=== PATIENT | female | born 1985 | race Caucasian/White ===

== ENCOUNTER 2019-04-08 08:28 | Observation (INO) | payer BC ==
[~2019-04-08] VITALS: Ht 165.1 cm; Wt 93.2 kg
--- OUTSIDE RECORDS SUMMARY | 2019-04-08 08:30 | XMS REPORT | Continuity of Care Document ---
Author Author [facility] Address [address] [place] [address] Care Team Providers Care Aviation Consultant Name Role Phone Regis Sandoval Attphys NONE, NONE PCP Unavailable NONE, NONE PCP Unavailable Allergies, Adverse Reactions, Alerts No allergy information available. Medications No medication information available. Problem List No problem information available. Procedures Procedure Date Status Provider(s) RIGHT EXTRA CORPORAL SHOCKWAVE.. October 30, 2017 completed Regis Sandoval MD [place] Count October 30, 2017 active October 30, 2017 active Stone Protocol October 29, 2017 completed Abdomen 1 View (KUB) October 29, 2017 completed Relevant Diagnostic Tests and/or Laboratory Data Laboratory Results Test Date/Time Result Interp. Ref. Range Result Comment White Blood Count October 30, 2017 10:41am 7.6 K/uL 4.3-10.9 Red Blood Count October 30, 2017 10:41am 4.66 M/uL 3.86-4.86 Hemoglobin October 30, 2017 10:41am 14.7 g/dL 12.0-15.0 Hematocrit October 30, 2017 10:41am 43.1 % 36.0-45.0 Mean Corpuscular Volume October 30, 2017 10:41am 92.5 fL 80-100 Mean Corpuscular Hemoglobin October 30, 2017 10:41am 31.6 pg 27.0-35.0 Mean Corpuscular Hemoglobin Concent October 30, 2017 10:41am 34.1 g/dL 32.0-36.0 Platelet Count October 30, 2017 10:41am 244 K/uL 152-406 Red Cell Distribution Width October 30, 2017 10:41am 13.3 % 12.1-15.2 Mean Platelet Volume October 30, 2017 10:41am 7.7 fL 7.6-11.3 Neutrophils % October 30, 2017 10:41am 70.0 % 41.7-73.7 Lymphocytes % October 30, 2017 10:41am 22.1 % 15.3-44.8 Monocytes % October 30, 2017 10:41am 6.7 % 3.3-12.3 Eosinophils % October 30, 2017 10:41am 0.9 % 0-4.4 Basophils % October 30, 2017 10:41am 0.3 % 0-1.3 Absolute Neutrophil October 30, 2017 10:41am 5.3 K/uL 1.8-8.0 Absolute Lymphocytes (CBC) October 30, 2017 10:41am 1.7 K/uL 0.7-4.9 Absolute Monocytes (CBC) October 30, 2017 10:41am 0.5 K/uL 0.1-1.3 Absolute Eosinophils (CBC) October 30, 2017 10:41am 0.1 K/uL 0-0.5 Absolute Basophils (CBC) October 30, 2017 10:41am 0.0 K/uL 0-0.5 Activated Partial Thromboplast Time October 30, 2017 10:41am 27.6 SECONDS 24.3-36.9 Sodium Level October 30, 2017 10:41am 136 mEq/L 135-145 Potassium Level October 30, 2017 10:41am 4.0 mEq/L 3.6-5.0 Chloride Level October 30, 2017 10:41am 103 mEq/L 101-111 Carbon Dioxide Level October 30, 2017 10:41am 26 mEq/L 21-31 Glucose Level October 30, 2017 10:41am 106 mg/dL 65-120 ADA Clinical Practice Recommendation: <100 mg/dl=Normal Fasting Glucose Blood Urea Nitrogen October 30, 2017 10:41am 16 mg/dL 6-20 Creatinine October 30, 2017 10:41am 0.81 mg/dL 0.44-1.00 The creatinine method used has been calibrated to be traceable to Isotope dilution Mass Spectrometry (IDMS). For more information: www.nkdep.nih.gov Estimat Glomerular Filtration Rate October 30, 2017 10:41am 82 mL/min Low 90- FOR CHRONIC KIDNEY DISEASE: GFR STAGE DESCRIPTION =/>90 STAGE 1 NORMAL--OR-- MINIMAL KIDNEY DAMAGE WITH NORMAL GFR 60-89 STAGE 2 MILD DECREASE IN GFR 30-59 STAGE 3 MODERATE DECREASE IN GFR 15-29 STAGE 4 SEVERE DECREASE IN GFR <15 STAGE 5 KIDNEY FAILURE The Glomerular Filtration Rate (GFR) has been calculated using the IDMS-Traceable MDRD Study Equation. Uric Acid October 30, 2017 10:41am 5.8 mg/dL 2.6-8.0 Calcium Level October 30, 2017 10:41am 9.6 mg/dL 8.5-10.5 Phosphorus Level October 30, 2017 10:41am 2.7 mg/dL 2.5-4.3 Specific [place] October 30, 2017 10:25am 1.025 1.005-1.030 Urine Test October 30, 2017 10:25am Neg Urine Color October 30, 2017 10:25am Yellow Urine Appearance October 30, 2017 10:25am Clear Urine Specific [place] October 30, 2017 10:25am 1.025 Urine Glucose October 30, 2017 10:25am Negative Urine Bilirubin October 30, 2017 10:25am Negative Urine Ketones October 30, 2017 10:25am Negative Urine Blood October 30, 2017 10:25am Negative Urine pH October 30, 2017 10:25am 6.0 Urine Total Protein October 30, 2017 10:25am Negative Urine Urobilinogen October 30, 2017 10:25am 0.2 mg/dL Urine Nitrite October 30, 2017 10:25am Negative Urine Leukocyte Esterase October 30, 2017 10:25am Negative Discharge Summary Encounter: Admit Date: Discharge Date: [facility] NAME: SCOTT QUISPE ADMITTING: ADMIT DATE: ATTENDING: : 1985 ACCOUNT NO: [id number] PATIENT TYPE: DEP ER LOCATION: ER Nurse's Notes [facility] Name: Scott Quispe Age: 31 yrs Sex: Female : 1985 Arrival Date: 06/18/2017 Time: 13:14 Bed 18 Private MD: Diagnosis: Low back pain;Unspecified abdominal pain;Hematuria, unspecified Presentation: 06/18 13:20 Presenting complaint: Patient states: sharp sudden pain to R mid/lower back at 0930, ch comes and goes but hurts so bad I puke when it comes. Transition of care: patient was not received from another setting of care. Onset of symptoms was June 18, 2017 at 09:30. Care prior to arrival: None. 13:20 Method Of Arrival: Ambulatory 13:20 Acuity: YAYA 3 ch Triage Assessment: 13:21 General: Appears in no apparent distress. uncomfortable, Behavior is calm, cooperative, ch appropriate for age. Pain: Complains of pain in right mid back and right low back Pain currently is 8 out of 10 on a pain scale. [employer] FABRICATOR: 13:21 LMP 02/24/2017 Historical: - Allergies: 13:21 No Known Allergies; - Home Meds: 13:22 control implant [Active]; ch - PMHx: 13:21 None; - PSHx: 13:21 ; Appendectomy; abscess removed fro R leg; - Ebola Screening: : Patient negative for fever greater than or equal to 101.5 degrees Fahrenheit, and additional compatible Ebola Virus Disease symptoms Patient denies exposure to infectious person Patient denies travel to an Ebola-affected area in the 21 days before illness onset No symptoms or risks identified at this time. - Immunization history:: Adult Immunizations up to date, Flu vaccine is not up to date. - Social history:: Smoking status: Patient/guardian denies using tobacco, Patient uses alcohol, only on a social basis. Patient/guardian denies using street drugs. - Family history:: not pertinent. - Hospitalizations: : No recent hospitalization is reported. Screenin:32 Abuse screen: Denies threats or abuse. Denies injuries from another. Nutritional ed1 screening: No deficits noted. Tuberculosis screening: No symptoms or risk factors identified. Fall Risk None identified. Assessment: 13:32 General: Appears in no apparent distress. Behavior is calm, cooperative. Pain: ed1 Complains of pain in right low back and right mid back Pain does not radiate. Pain currently is 8 out of 10 on a pain scale. Quality of pain is described as sharp, Pain began 4 hours ago. Is intermittent. Neuro: Level of Consciousness is awake, alert, obeys commands, Oriented to person, place, time, situation. Cardiovascular: Denies chest pain, Heart tones S1 S2 present. Respiratory: Airway is patent Trachea midline Respiratory effort is even, unlabored, Respiratory pattern is regular, symmetrical, Breath sounds are clear bilaterally. Denies shortness of breath. GI: Abdomen is non-distended, Bowel sounds present X 4 quads. Abd is soft and non tender X 4 quads. Reports nausea, vomiting, Patient currently denies diarrhea. : Denies burning with urination, urinary frequency, urgency. EENT: No signs and/or symptoms were reported regarding the EENT system. Derm: Skin is pink, warm \T\ dry. Musculoskeletal: Circulation, motion, and sensation intact. 13:40 General: I agree with the above assessment. kt1 14:51 Reassessment: Patient appears in no apparent distress at this time. No changes from ed1 previously documented assessment. Patient and/or family updated on plan of care and expected duration. Pain level reassessed. Patient is alert, oriented x 3, equal unlabored respirations, skin warm/dry/pink. Vital Signs: 13:21 BP 138 / 75; Pulse 89; Resp 18; Temp 99.2; Pulse Ox 100% on R/A; Weight 81.65 kg; ch Height 5 ft. 5 in. (165.10 cm); Pain 8/10; 14:51 BP 129 / 84; Pulse 76; Resp 16; Temp 97.4(O); Pulse Ox 100% on R/A; Pain 7/10; ed1 13:21 Body Mass Index 29.95 (81.65 kg, 165.10 cm) ED Course: 13:14 Patient arrived in ED. tw3 13:20 Triage completed. 13:22 Arm band placed on right wrist. Patient placed in an exam room, on a stretcher. 13:23 Musa Nelson MD is Attending Physician. rn 13:26 Lucia Chatterjee LVN is Primary Nurse. ed1 13:32 Patient has correct armband on for positive identification. Bed in low position. Call ed1 light in reach. 13:32 Urine collected: clean catch specimen, cloudy. ed1 13:51 Initial lab(s) drawn, by vt, sent to lab. Inserted saline lock: 22 gauge in right ed1 antecubital area, using aseptic technique. Blood collected. 14:07 CT Stone Protocol In Process Unspecified. EDMS 14:51 No provider procedures requiring assistance completed. IV discontinued, intact, ed1 bleeding controlled, No redness/swelling at site. Pressure dressing applied. Administered Medications: No medications were administered Outcome: 14:33 Discharge ordered by . rn 14:51 Discharged to home ambulatory. ed1 14:51 Condition: good 14:51 Discharge instructions given to patient, Instructed on discharge instructions, follow up and referral plans. Demonstrated understanding of instructions, follow-up care. 14:55 Patient left the ED. ed1 Signatures: Dispatcher [employer] So Stephens, RN RN Musa Painter MD MD rn Riggs, Erika, BAG REPAIRER BAG REPAIRER ed1 Josie Daly RN RN kt1 Davis, Candy tw3 Corrections: (The following items were deleted from the chart) 13:22 13:21 Home Meds: None; [facility] 06/18/17 1536 Advance Directives Advance Directive Response Recorded Date/Time Does Patient Have Living Will No July 27, 2013 1:21pm Durable Power of Securities Supervisor for Health Care No July 27, 2013 1:21pm Chief Complaint and Reason for Visit Encounter Admit Date Chief Complaint Reason for Visit Departed Surgical Day Care October 30, 2017 10:22am [facility] Discharge Instructions Query Response Comment Date/Time Discharge Instruction given to Patient/Caregiver Yes 10/30/2017 16:13 Encounters Encounter Facility Location Admit Date Discharge Date Attending Provider Departed Surgical Day Care [facility] OPERATING ROOM October 30, 2017 10:22am October 30, 2017 4:30pm Regis Sandoval Registered Referred [facility] RADIOLOGY October 29, 2017 10:07am Regis Sandoval Functional Status No known functional status. Immunizations No known immunizations. Payers Payer Name Policy Type Covered Alliance Party Covered Alliance Party Id Relationship Subscriber Subscriber Id MEMO GIL [employer] SCOTT QUISPE [id number] SAME PATIENT (SELF) SCOTT QUISPE [id number] Plan of Care No known plan of care. Social History No known social history. Vital Signs Vital Reading Result Reference Range Collection Date/Time Height n/a Weight n/a Temperature 97.6 F 96.8 F-100.9 F October 30, 2017 4:13pm Pulse 58 BPM 50-90 October 30, 2017 4:13pm Respiration 18 RPM 12-20 October 30, 2017 4:13pm Pulse Oximetry n/a Blood Pressure Systolic 122 90-140 October 30, 2017 4:13pm Blood Pressure Diastolic 64 60-90 October 30, 2017 4:13pm Body Mass Index n/a
--- OUTSIDE RECORDS SUMMARY | 2019-04-08 08:30 | XMS REPORT ---
Author Author [facility] Address Unknown Phone Unavailable Care Team Providers Care Retirement Officer Name Role Phone Candi Keene Unavailable Unavailable Davon ODOM Unavailable Unavailable Efren Jacinto Unavailable Unavailable Regis Sandoval Unavailable Unavailable Musa Nelson Unavailable Unavailable Problems This patient has no known problems. Allergies, Adverse Reactions, Alerts This patient has no known allergies or adverse reactions. Medications This patient has no known medications. Results Test Description Test Time Test Comments Text Results Atomic Results Result Comments Thyroid Para Parotid Gland 2019-03-15 12:43:00 [place] [address] RADIOLOGY SERVICES REPORT Name: SCOTT QUISPE Acct Number: [id number] :1985 Age:33 Sex:F Ord Phys: Daren Keene MD Unit Number: [id number] [facility] Dr: Status: REG REF RAD Exam Date: 03/15/19 EXAM DESCRIPTION: US - Thyroid Para Parotid Gland - 03/15/2019 11:37 am CLINICAL HISTORY: Left neck mass COMPARISON: None. FINDINGS: Thyroid isthmus is 5 mm in thickness. Right thyroid lobe measures 5.0 x 1.6 x 1.8 cm. In the central right lobe there is a 13 millimeter solid mass. Left lobe measures 6.5 x 2.6 x 2.5 cm. There is a heterogeneous, predominantly solid 3.6 centimeter mass. A 1.6 centimeter cystic component on the superior margin may be a separate cystic mass. No adjacent mass or lymphadenopathy. IMPRESSION: Overall enlarged thyroid gland with a 3.6 centimeter dominant left lobe mass. Signed By: Geo Montez MD Signed AT: 03/15/19 1243 Triiodothyronine (T3) Free [Mass/volume] in Serum or Plasma 2019-02-28 18:20:00 Triiodothyronine (T3) Free [Mass/volume] in Serum or Plasma (test pmck=4241-7) 2.50 pg/mL 2.18-3.98 Thyroxine (T4) free [Mass/volume] in Serum or Qnvozw7054-59-15 18:20:00* Test Item Value Reference Range Comments Thyroxine (T4) free [Mass/volume] in Serum or Plasma (test bkep=7787-1) 1.12 0.76-1.46 Thyrotropin [Units/volume] in Serum or Plasma by Detection limit <=0.05 mIU/L 2019-02-28 18:20:00* Test Item Value Reference Range Comments Thyrotropin [Units/volume] in Serum or Plasma by Detection limit \T\lt;=0.05 mIU/L (test xvxb=55266-6) 0.612 [iU]/L 0.360-3.740 Complete blood count (CBC) with automated white blood cell (WBC) differential 2019-02-28 17:58:00* Test Item Value Reference Range Comments White blood cell count (test mofz=ZDC5317) 9.8 4.3-10.9 Blood erythrocytes count (number/volume) (test ejic=73818-0) 4.37 M/ul 3.86-4.86 Hemoglobin measurement (test kpil=DEC9852) 13.5 g/dL 12.0-15.0 Blood hematocrit (volume fraction) (test fhye=91581-7) 40.6 % 36.0-45.0 MCV (test etxv=WFR7633) 92.8 fL 80-100 30.8 MCHC (test code=MCHC) 33.2 g/dL 32.0-36.0 Platelets (test code=PLT) 250 152-406 Red Cell Distribution Width (test code=RDW) 13.4 % 12.1-15.2 Blood platelet mean volume (test tdzf=94846-0) 7.4 fL 7.6-11.3 Neutrophils % (test code=CAROL%) 74.2 % 41.7-73.7 Lymphocytes/leuk NFr Bld (test wadf=65302-7) 17.3 % 15.3-44.8 Monocyte percentage (test oouo=4158-8) 7.4 % 3.3-12.3 Eosinophil % (test uhxv=975-3) 0.8 % 0-4.4 Basophil % (test jixa=45319-1) 0.3 % 0-1.3 Absolute neutrophil count (test mpum=666-6) 7.3 1.8-8.0 Absolute lymphocyte count (test rkay=30625-5) 1.7 0.7-4.9 Absolute monocyte count (test gruk=305-9) 0.7 0.1-1.3 Absolute Eosinophils (test code=EOA) 0.1 0-0.5 Absolute Basophils (test code=BASA) 0.0 0-0.5 Urine test at point of qlxs9850-46-84 12:10:00* Test Item Value Reference Range Comments Urine Test (test code=UPG) NEG NEG Urine specific gravity measurement (test jeal=3993-0) 1.015 1.005-1.030 Tested by: jrl BLOOD: NEG GLUCOSE: NEG KETONES: NEG LEUKOCYTES: NEG NITRITE: NEG PH: 7.5 PROTEIN: NEG jrl NEG jrl NEG NEG NEG NEG NEG 7.5 NEG Y 1.015Urine dipstick testing at ifdku-hn-emst8578-01-05 12:10:00* Test Item Value Reference Range Comments Urine glucose detection (test mgbs=3197-5) Negative NEG Urine Ketones (test code=UKET) NEGATIVE NEG Urine blood detection (test lwnp=62552-2) Negative NEG Urine pH (test obsn=2053-6) 7.5 5.0-7.0 Urinalysis with microscopy (test lisr=23007-0) NEGATIVE NEG Urine Nitrate (test code=UNIT) NEGATIVE NEG Urine Leukocyte Esterase (test code=UESTR) NEGATIVE NEG Tested by: jrl BLOOD: NEG GLUCOSE: NEG KETONES: NEG LEUKOCYTES: NEG NITRITE: NEG PH: 7.5 PROTEIN: NEG jrl NEG jrl NEG NEG NEG NEG NEG 7.5 NEG Y 1.015Head Brain Wo Skmj9405-95-79 12:00:00[place] [address] RADIOLOGY SERVICES REPORT Name: SCOTT QUISPE Acct Number: [id number] :1985 Age:33 Sex:F Ord Phys: Marco A Yeboah NP Unit Number: [id number] [facility] Dr: NONE Status: REG ER Exam Date: 11/30/18 EXAM DESCRIPTION: CT - Head Brain Wo Cont - 11/30/2018 11:31 am CLINICAL HISTORY: Left-sided numbness COMPARISON: None. TECHNIQUE: Computed axial tomography of the head was obtained. IV contrast was not requested. All CT scans are performed using dose optimization technique as appropriate and may include automated exposure control or mA/KV adjustment according to patient size. FINDINGS: An intracranial bleed is not seen . The ventricles are normal in caliber. No extra-axial fluid collection is noted. Fluid within the sinuses/ mastoids is not seen. IMPRESSION: No acute intracranial abnormality is seen. If patient's symptoms persist MRI of the brain would be recommended. Signed By: Dat Baldwin MD Signed AT: 11/30/18 1200 [place] count 2017-11-01 08:08:00Primary Language Turkish<10,000 CFU/ML.^<10,000 CFU/ML.^L Urine ubanlww2172-27-05 08:08:00* Test Item Value Reference Range Comments Urine culture (test vzcq=418-1) NO GROWTH Primary Language EnglishBasic Metabolic Ilfyl1628-01-84 11:23:00* Test Item Value Reference Range Comments Sodium level (test pwvv=YLE5814) 136 meq/L 135-145 4.0 Chloride measurement (test jiog=EOI5279) 103 meq/L 101-111 Bicarbonate (test code=CO2) 26 meq/L 21-31 Glucose measurement (test umui=LNE5904) 106 mg/dL 65-120 ADA Clinical Practice Recommendation: <100 mg/dl=Normal Fasting Glucose BUN Bld-mCnc (test cqrp=3780-9) 16 mg/dL 6-20 Creatinine measurement (test oual=RXZ1982) 0.81 mg/dL 0.44-1.00 The creatinine method used has been calibrated to be traceable to Isotope dilution Mass Spectrometry (IDMS). For more information: www.nkdep.nih.gov Estimated glomerular filtration rate (GFR) determination (test eeel=65340-9) 82 mL =/>90 FOR CHRONIC KIDNEY DISEASE: GFR STAGE DESCRIPTION=/>90 STAGE 1 NORMAL--OR-- MINIMAL KIDNEY DAMAGE WITH NORMAL GFR 60-89 STAGE 2 MILD DECREASE IN GFR 30-59 STAGE 3 MODERATE DECREASE IN GFR 15-29 STAGE 4 SEVERE DECREASE IN GFR <15 STAGE 5 KIDNEY FAILURE The Glomerular Filtration Rate (GFR) has been calculated using the IDMS-Traceable MDRD Study Equation. Calcium Level (test code=CA) 9.6 mg/dL 8.5-10.5 Primary Language EnglishUric Geqk5656-78-53 11:23:00* Test Item Value Reference Range Comments Uric Acid (test code=URIC) 5.8 mg/dL 2.6-8.0 Primary Language EnglishPhosphorus pkohhaeycmu1730-64-85 11:23:00* Test Item Value Reference Range Comments Phosphorus measurement (test qkgl=YLF6722) 2.7 mg/dL 2.5-4.3 Primary Language EnglishPTT, Activated Partial Rlkeml2596-75-27 11:23:00* Test Item Value Reference Range Comments PTT, Activated Partial Thromb (test code=PTT) 27.6 s 24.3-36.9 Primary Language EnglishPregnancy Test, Lhkdi9435-59-14 11:14:00* Test Item Value Reference Range Comments Urine specific gravity measurement (test zqbn=3034-3) 1.025 1.005-1.030 Urine Test (test code=UPG) NEG NEG Primary Language AhluvbhDjvcclvalw1955-50-72 11:14:00* Test Item Value Reference Range Comments Urine color (test sfnw=1755-5) YELLOW Urine appearance determination (test ulgv=1853-7) CLEAR Urine specific gravity measurement (test cpok=8116-2) 1.025 1.005-1.030 Urine glucose detection (test gslo=3797-5) Negative NEG Urine bilirubin detection (test vjjb=8250-9) Negative NEG Urine Ketones (test code=UKET) NEGATIVE NEG Urine blood detection (test ixpc=98920-7) Negative NEG Urine pH (test zzzr=8290-9) 6.0 5.0-7.0 Urinalysis with microscopy (test adfd=06464-8) NEGATIVE NEG Urine urobilinogen detection (test zykf=85765-9) 0.2 0.2-1.0 Urine nitrate measurement (test ezyp=52565-4) NEGATIVE NEG Urine Leukocyte Esterase (test code=UESTR) NEGATIVE NEG Primary Language EnglishComplete blood count (CBC) with automated white blood cell (WBC) wzepltjpgxqp9426-40-55 11:03:00* Test Item Value Reference Range Comments White blood cell count (test epzn=UPZ7056) 7.6 4.3-10.9 Blood erythrocytes count (number/volume) (test ukol=02108-5) 4.66 M/ul 3.86-4.86 Hemoglobin measurement (test djlu=EGG0797) 14.7 g/dL 12.0-15.0 Blood hematocrit (volume fraction) (test vxmp=00101-4) 43.1 % 36.0-45.0 MCV (test iuec=62565-9) 92.5 fL 80-100 MCH (test tcho=16957-6) 31.6 pg 27.0-35.0 MCHC (test code=MCHC) 34.1 g/dL 32.0-36.0 Platelets (test code=PLT) 244 152-406 Red Cell Distribution Width (test code=RDW) 13.3 % 12.1-15.2 Blood platelet mean volume (test clnw=04217-2) 7.7 fL 7.6-11.3 Neutrophils % (test code=CAROL%) 70.0 % 41.7-73.7 Lymphocytes/leuk NFr Bld (test nkuw=92933-8) 22.1 % 15.3-44.8 Monocyte percentage (test hfrv=6165-2) 6.7 % 3.3-12.3 Eosinophil % (test yqpr=453-3) 0.9 % 0-4.4 Basophil % (test lnch=36478-3) 0.3 % 0-1.3 Absolute neutrophil count (test yldm=655-7) 5.3 1.8-8.0 Absolute lymphocyte count (test kpih=50118-3) 1.7 0.7-4.9 Absolute monocyte count (test jfrt=124-7) 0.5 0.1-1.3 Absolute Eosinophils (test code=EOA) 0.1 0-0.5 Absolute Basophils (test code=BASA) 0.0 0-0.5 Primary Language Turkish Comment PT IN BED 7 AT [facility] hzbwu0230-57-53 10:16:00<10,000 CFU/ML.^<10,000 CFU/ML.^LUrine turvdhd5115-26-91 10:16:00* Test Item Value Reference Range Comments Urine culture (test zdyy=039-0) MIXED FARA Urine test at point of ikeb6887-07-02 14:26:00* Test Item Value Reference Range Comments Urine Test (test code=UPG) NEG NEG Urine specific gravity measurement (test vtdk=8109-0) >1.030 1.005-1.030 Tested by: edr BLOOD: 2+ GLUCOSE: NEG KETONES: NEG LEUKOCYTES: NEG NITRITE: NEG PH: 5.5 PROTEIN: 1+ edr NEG edr 2+ NEG NEG NEG NEG 5.5 1+ Y >1.030Urine dipstick testing at ebohz-ga-edpd0196-07-24 14:26:00* Test Item Value Reference Range Comments Urine glucose detection (test idnu=7463-4) Negative NEG Urine Ketones (test code=UKET) NEGATIVE NEG Urine blood detection (test yzbr=56883-3) 2+ NEG Urine pH (test liku=0454-0) 5.5 5.0-7.0 Urinalysis with microscopy (test lwcr=12477-1) 1+ NEG Urine nitrate measurement (test nwkr=00241-9) NEGATIVE NEG Urine Leukocyte Esterase (test code=UESTR) NEGATIVE NEG Tested by: edr BLOOD: 2+ GLUCOSE: NEG KETONES: NEG LEUKOCYTES: NEG NITRITE: NEG PH: 5.5 PROTEIN: 1+ edr NEG edr 2+ NEG NEG NEG NEG 5.5 1+ Y >1.030Microscopic examination of fhbjs8250-40-13 14:25:00* Test Item Value Reference Range Comments Urine WBC (test code=UWBC) <5 <5 Urine sediment erythrocyte count by microscopy (number/high power field) (test vfyd=06554-7) 20 NONE SEEN Bacteria detection in urine sediment by light microscopy (test xnzh=71440-9) 20-50 <20 Sqamous Epithelial (test code=SQEP) 5-10 NONE SEEN Urinalysis with reflex to culture (test abzy=64016-5) REFLEXED Comment Bed:18[facility] Metabolic Tnvmo2892-44-93 14:13:00* Test Item Value Reference Range Comments Sodium level (test giaf=PUR7639) 138 meq/L 135-145 3.8 Chloride measurement (test oalv=OSV3828) 107 meq/L 101-111 Bicarbonate (test code=CO2) 26 meq/L 21-31 Glucose measurement (test uylp=GJH6807) 119 mg/dL 65-120 ADA Clinical Practice Recommendation: <100 mg/dl=Normal Fasting Glucose BUN Bld-mCnc (test wbep=4669-7) 14 mg/dL 6-20 Creatinine measurement (test wexz=JMR0478) 0.76 mg/dL 0.44-1.00 The creatinine method used has been calibrated to be traceable to Isotope dilution Mass Spectrometry (IDMS). For more information: www.nkdep.nih.gov Estimated glomerular filtration rate (GFR) determination (test nzey=22155-0) 89 mL =/>90 FOR CHRONIC KIDNEY DISEASE: GFR STAGE DESCRIPTION=/>90 STAGE 1 NORMAL--OR-- MINIMAL KIDNEY DAMAGE WITH NORMAL GFR 60-89 STAGE 2 MILD DECREASE IN GFR 30-59 STAGE 3 MODERATE DECREASE IN GFR 15-29 STAGE 4 SEVERE DECREASE IN GFR <15 STAGE 5 KIDNEY FAILURE The Glomerular Filtration Rate (GFR) has been calculated using the IDMS-Traceable MDRD Study Equation. Calcium Level (test code=CA) 9.6 mg/dL 8.5-10.5 Liver (Hepatic) Xhmzekip5220-98-39 14:13:00* Test Item Value Reference Range Comments Aspartate aminotransferase (AST) measurement (test tjdl=IQB8131) 18 [iU]/L 10-42 ALT/SGPT (test code=SGPT) 19 [iU]/L 10-60 Alkaline Phosphatase (test code=ALK) 67 [iU]/L 42-121 Bilirubin total (test yvao=UZV8730) 0.3 mg/dL 0.3-1.2 Bilirubin direct (test ggor=4159-5) 0.1 mg/dL 0-0.2 Serum total protein measurement (test voxk=2853-1) 7.5 g/dL 6.0-8.3 Albumin measurement (test myjj=DOF9362) 4.2 g/dL 3.2-5.5 Globulin (test code=GLOB) 3.3 g/dL 2.3-3.5 Albumin/Globulin Ratio (test code=A/G) 1.3 1.1-1.8 Lipase awzzcmzpcbp4751-35-81 14:13:00* Test Item Value Reference Range Comments Lipase measurement (test fanh=6042-2) 30 U/L 22-51 Creatinine (Radiology Only)2017-06-18 14:07:00* Test Item Value Reference Range Comments Creatinine measurement (test eaaa=KAQ7727) 0.74 mg/dL 0.44-1.00 The creatinine method used has been calibrated to be traceable to Isotope dilution Mass Spectrometry (IDMS). For more information: www.nkdep.nih.gov Estimated glomerular filtration rate (GFR) determination (test tfge=43453-0) >60 mL >60 FOR CHRONIC KIDNEY DISEASE: GFR STAGE >60 1 or 2 30-59 3 15-29 4 <15(or dialysis) 5 The Glomerular Filtration Rate (GFR) has been calculated using the IDMS-Traceable MDRD Study Equation. Complete blood count (CBC) with automated white blood cell (WBC) differential 2017-06-18 13:58:00* Test Item Value Reference Range Comments White blood cell count (test rvpa=ZPX7776) 8.5 4.3-10.9 Blood erythrocytes count (number/volume) (test trbp=28291-4) 4.78 M/ul 3.86-4.86 Hemoglobin measurement (test ftqz=TEE9862) 14.7 g/dL 12.0-15.0 Blood hematocrit (volume fraction) (test dhab=84185-2) 43.9 % 36.0-45.0 MCV (test haqo=37994-3) 91.8 fL 80-100 MCH (test mlhd=90163-2) 30.7 pg 27.0-35.0 MCHC (test code=MCHC) 33.4 g/dL 32.0-36.0 Platelets (test code=PLT) 249 152-406 Red Cell Distribution Width (test code=RDW) 13.0 % 12.1-15.2 Blood platelet mean volume (test mspo=92451-5) 7.5 fL 7.6-11.3 Neutrophils % (test code=CAROL%) 66.2 % 41.7-73.7 Lymphocytes/leuk NFr Bld (test wscc=84969-1) 24.5 % 15.3-44.8 Monocyte percentage (test qgbs=8383-5) 7.6 % 3.3-12.3 Eosinophil % (test hdfl=726-5) 1.3 % 0-4.4 Basophil % (test stmn=37499-8) 0.4 % 0-1.3 Absolute neutrophil count (test fxdl=760-7) 5.6 1.8-8.0 Absolute lymphocyte count (test wfjz=60575-3) 2.1 0.7-4.9 Absolute monocyte count (test ubft=544-3) 0.6 0.1-1.3 Absolute Eosinophils (test code=EOA) 0.1 0-0.5 Absolute Basophils (test code=BASA) 0.0 0-0.5 Abdomen 1 View (KUB)[place] [address] RADIOLOGY SERVICES REPORT Name: SCOTT QUISPE Acct Number: [id number] : 1985 Age: 32 Sex:F Ord Phys: Regis Sandoval MD Unit Number: [id number] [facility] Dr: Status: REG REF RAD Exam Date: 11/07/17 EXAM DESCRIPTION: RAD - Abdomen 1 View (KUB) - 11/07/2017 1:14 pm CLINICAL HISTORY: N20.0, N20.1 COMPARISON: 10/29/2017. FINDINGS: The bowel gas pattern is non-obstructive. No evidence of free air or pneumatosis. Punctate bilateral nephrolithiasis is seen. The right-sided calculus previously noted appears significantly fragmented. No significant bony findings. IMPRESSION: Bilateral nephrolithiasis with interval fragmentation of the largest right- sided calculus noted. Signed By: Nas Goodman MD Signed AT: 11/07/17 1322 [place] [address] Name: SCOTT QUISPE Phys: Regis Sandoval MD : 1985 Age: 32 Sex:F Acct: [id number] Loc: RAD Exam Date: 10/29/17 Status: REG REF Radiology Number: Unit Number: [id number] EXAM DESCRIPTION: CT - Stone Protocol - 10/29/2017 10:40 am CLINICAL HISTORY: Flank pain. N20.0 COMPARISON: 06/18/2017, 01/26/2014. TECHNIQUE: Axial images were obtained without oral or IV contrast. Lack of contrast limits solid organ and vascular assessment. The lqcnm-is-nfsw spans the entirety of the system partially obscuring uppermost abdomen and lung bases. Coronal reformatted images were obtained and reviewed. All CT scans are performed using dose optimization technique as appropriate and may include automated exposure control or mA/KV adjustment according to patient size. FINDINGS: The lower lung edmondson are clear. Imaged portions of the liver and spleen show no curtis picious findings on non-contrast imaging. The pancreas and adrenal glands are no rmal. No pathologic lymphadenopathy in the abdomen or pelvis. Bilateral re nal calculi are noted in both calices. The largest measuring 8 mm in the inferio r right kidney. No ureter or bladder calculi seen. No hydronephrosis. No b owel obstruction, free air, free fluid or abscess. Appendectomy clips noted. IMPRESSION: Bilateral caliceal nonobstructing calculi as detailed. S igned By: Nas Goodman MD Signed AT: 10/29/17 1110 Abdomen 1 View (KUB)[place] [address] Name: SCOTT QUISPE Phys: Regis Sandoval MD : 1985 Age: 32 Sex:F Acct: [id number] Loc: RAD Exam Date: 10/29/17 Status: REG REF Radiology Number: Unit Number: [id number] EXAM DESCRIPTION: RAD - Abdomen 1 View (KUB) - 10/29/2017 11:16 am CLINICAL HISTORY: Pain COMPARISON: CT study 10/29/2017 and more remote studies FINDINGS: The bowel gas pattern is non-obstructive. No evidence of free air or pneumatosis. Bilateral nephrolithiasis is noted, largest in the inferior calyx right kidney. No significant bony findings. Appendectomy clips. IMPRESSION: Bilateral nephrolithiasis as detailed. Signed By: Nas Goodman MD Signed AT: 10/29/17 6657
[2019-04-08] MEDS ORDERED: hydroxyzine PO (09:21)
[2019-04-08] MEDS ORDERED: LIDOCAINE 1% W/EPINEPHRINE 20 ML VIAL ONE (12:31)
[2019-04-08] MEDS ORDERED: DEXAMETHASONE SOD PHOS 10 MG/1 ML VIAL ONE (12:31)
[2019-04-08] MEDS ORDERED: ACETAMINOPHEN 1000 MG/100 ML 100 ML IV ONE (12:32)
[2019-04-08] MEDS ORDERED: LIDOCAINE HCL (LTA) 4 ML SOLN ONE (12:32)
[2019-04-08] MEDS ORDERED: ONDANSETRON HCL INJ 2MG/ML 2ML 2 MG/ML VIAL ONE ×2 (14:06→18:19)
[2019-04-08] MEDS ORDERED: FENTANYL CITRATE/PF 100MCG/2 ML INJ ONE ×2 (15:24→17:21)
--- NOTE | 2019-04-08 15:50 | NUR ---
RECEIVED PATIENT FROM RECOVERY. PATIENT A/O X3, EVEN RESPIRATIONS ON RA. BOWEL SOUNDS ACTIVE. NECK DRESSING CLEAN DRY AND INTACT. PATIENT AMBULATORY. SCD's IN PLACE BILATERALLY. LEFT HAND 20 GAUGE IV WITH LR @ 100 CC/HR. BED LOW, WHEELS LOCKED, SIDE RAILS X2. CALL LIGHT IN REACH, WILL CONTINUE TO MONITOR PATIENT.
[2019-04-08] MEDS: LACTATED RINGER'S 1,000 ML IV SCH (16:15)
[2019-04-08] MEDS ORDERED: PROMETHAZINE 25MG/ NS 50ML (IV) IV PRN (16:15)
[2019-04-08 16:39] VITALS: BP 114/60
[2019-04-08 17:01] VITALS: BP 114/60
--- NOTE | 2019-04-08 17:18 | Operative Report ---
DATE OF PROCEDURE: 04/08/2019 SURGEON: Travis Mandujano MD CHIEF COMPLAINT: Left thyroid nodule. POSTOPERATIVE DIAGNOSIS: Left thyroid nodule. PROCEDURE: Left thyroidectomy with appropriate closure. PRINCIPAL EXAMINER: Norma Liu. ANESTHESIA: Anesthesiology group. INDICATION: This 33 years old female was noted to have dominant nodule in the left thyroid. The patient denies any dysphagia, odynophagia, or shortness of breath. The patient has no radiation to the head and neck area. There is no family history of thyroid problem. The patient declined a fine-needle aspiration of the area. Ultrasound of the thyroid showed the patient has a dominant nodule about 3 cm on the left side with a smaller nodule on the right. It was decided that left thyroidectomy and possible fine-needle aspiration of the right thyroid and possible total thyroidectomy and other necessary procedure will be beneficial for her. DESCRIPTION OF PROCEDURE: The patient was taken to the operating room, put under general anesthesia, and endotracheally intubated. The incision was marked out about two fingerbreadths from the sternal notch. Size of the incision about 3 cm. The area was injected with 1% Xylocaine with 1:100,000 epinephrine for hemostasis. The area was prepped and draped in a sterile fashion. Dissection was carried down to the subplatysmal plane. The superior and inferior flap were elevated. The strap muscle was identified and this was . The superior pole of the left thyroid was dissected from the surrounding soft tissue using the Harmonic scalpel. The thyroid gland was rotated medially and inferiorly. The thyroid gland was delivered. The thyroid isthmus was transected in the midline. This was done again using the Harmonic scalpel. The inferior pole of the thyroid was dissected from the surrounding soft tissue again using Harmonic scalpel. The inferior parathyroid gland was identified and not disturbed. The recurrent laryngeal nerve was identified and again it was not disturbed. The thyroid gland was dissected from the Lara's ligament and delivered and sent for frozen section. The frozen section returned as adenomatous nodule with no malignancy. During the dissection of the thyroid gland, a smaller nodule on the right side was also included in the transection. At the time of reexamination of the right thyroid, the smaller nodule that was noted on ultrasound could not be located. Closure of the area was undertaken. The area was irrigated with copious amount of normal saline, any bleeding area was controlled using the bipolar cautery. The strap muscle was advanced and closed using one mattress suture of 3-0 Vicryl suture. The platysmal flap that was elevated was advanced in the midline and closed on itself using 3-0 Vicryl suture in interrupted fashion. The skin incision was closed using 4-0 Prolene suture in the interrupted fashion. The patient tolerated the above procedure well with estimated blood loss about 5-10 mL. She was given 20 mg of Decadron intraoperatively. The patient was able to be transferred to recovery room in stable condition. MD MARISOL Ortega/MODL /[id number]
[2019-04-08] MEDS ORDERED: MIDAZOLAM HCL 2 MG/2 ML VIAL ONE (17:21)
[2019-04-08] MEDS ORDERED: LIDOCAINE HCL 2% LOCAL INJ 5 ML SDV VIAL INJ ONE (18:19)
[2019-04-08] MEDS ORDERED: GLYCOPYRROLATE INJ 1MG/ 5 ML SYR ONE (18:19)
[2019-04-08] MEDS ORDERED: SEVOFLURANE INHAL SOLN 250 ML PEN BTL ONE (18:19)
[2019-04-08] MEDS ORDERED: PHENYLEPHRINE HCL 1% 10 MG/ML VIAL ONE (18:19)
[2019-04-08] MEDS ORDERED: PROPOFOL IV EMULSION 10 MG/ML 20 ML VIAL ONE (18:19)
[2019-04-08] MEDS ORDERED: ROCURONIUM BROMIDE 10 MG/ML 5ML VIAL ONE (18:19)
[2019-04-08] MEDS ORDERED: NEOSTIGMINE 5 MG/5ML SYR ONE (18:19)
[2019-04-08] MEDS: ACETAMINOPHEN/CODEINE 300MG - 30MG TAB PO PRN (19:00)
--- NOTE | 2019-04-08 19:00 | NUR ---
patient received awake, alert, lying quietly in bed. hob elevated 40 degrees. ivf continue to infuse without difficulty. patient medicated with tylenol #3 1 po for c/o pain 5/10 to throat at this time. pm assessment complete. patient instructed to call for assistance when needed.
[2019-04-08 19:30] VITALS: BP 113/66
[2019-04-08 20:00] VITALS: BP 113/66
[2019-04-08] MEDS ORDERED: MEPERIDINE HCL INJ 25 MG/ML VIAL ONE (21:00)
[2019-04-08] MEDS: TRIMETHOPRIM/SULFAMETHOXAZOLE 160-800 MG TAB PO SCH (21:00)
[2019-04-08] MEDS: MEPERIDINE HCL/PF 25 MG/0.5 ML AMP IV PRN (21:10)
--- NOTE | 2019-04-08 21:10 | NUR ---
patient medicated with demerol 25 mg ivp for c/o throat/neck pain 05/05 at this time.
[2019-04-09] VITALS: BP 107/58
--- NOTE | 2019-04-09 | NUR ---
patient oob to br. patient voids without difficulty.
[2019-04-09] MEDS: LACTATED RINGER'S 1,000 ML IV SCH ×2 (00:08→08:54)
[2019-04-09] MEDS: PROMETHAZINE 25MG/SOD CHL 0.9% 50 ML IV PRN ×2 (01:45→09:55)
[2019-04-09] MEDS: ACETAMINOPHEN/CODEINE 300MG - 30MG TAB PO PRN (01:45)
--- NOTE | 2019-04-09 01:45 | NUR ---
patient medicated with tylenol #3 1 po for c/o neck/throat pain 5/10 and phenergan 25mg iv for c/o nausea at his time.
[2019-04-09 04:00] VITALS: BP 106/57
--- NOTE | 2019-04-09 04:00 | NUR ---
patient appears to be resting quietly. vss. no c/o pain noted. dressing to neck remains c,d,i.
[2019-04-09] MEDS ORDERED: MEPERIDINE HCL INJ 25 MG/ML VIAL ONE ×2 (06:05→12:31)
[2019-04-09] MEDS: MEPERIDINE HCL/PF 25 MG/0.5 ML AMP IV PRN ×2 (06:10→12:37)
--- NOTE | 2019-04-09 06:10 | NUR ---
patient medicated with demerol 25 mg ivp for c/o neck/throat pain 07/05 at this time.
[2019-04-09 07:08] LABS: ALBUMIN 3.3 g/dL (3.5-5.0); CALCIUM 9.5 mg/dL (8.4-10.2)
[2019-04-09 07:14] VITALS: BP 112/59
--- NOTE | 2019-04-09 08:21 | NUR ---
DENIES PAIN AT THIS TIME, CALL LIGHT WITHIN REACH
[2019-04-09] MEDS: TRIMETHOPRIM/SULFAMETHOXAZOLE 160-800 MG TAB PO SCH (08:54)
[2019-04-09 08:57] VITALS: BP 112/59
--- NOTE | 2019-04-09 09:57 | NUR ---
PT C/O NAUSEA, MEDICATED PER MD ORDER, EDUCATED TO CALL FOR ASSISTANCE PRIOR TO GETTING OUT OF CHAIR, PT VERBALIZED UNDERSTANDING, CALL LIGHT WITHIN REACH
--- NOTE | 2019-04-09 10:45 | NUR ---
AMBULATING IN HALLWAY, STEADY GAIT, DENIES NAUSEA AT THIS TIME
--- NOTE | 2019-04-09 12:38 | NUR ---
TOLERATING FULL LIQUID AT THIS TIME, MEDICATED FOR 8/10 ANTERIOR NECK PAIN, DRESSING CDI, EDUCATED TO NOT GET OOB WITHOUT CALLING FOR ASSISTANCE, PT VERBALIZED UNDERSTANDING, CALL LIGHT WITHIN REACH
[2019-04-09 12:59] VITALS: BP 116/58
--- NOTE | 2019-04-09 16:28 | NUR ---
SPOKE WITH MD CASTRO, ORDERS NOTED FOR DISCHARGE, DISCHARGE INSTRUCTIONS REVIEWED WITH PT, VERBALIZED UNDERSTANDING, PT REFUSED WC, AMBULATED OFF UNIT WITH PCT AT SIDE, NO CHANGE IN CONDITION
== END 2019-04-09 16:25 | disposition home or self-care (01) ==
LOC: OR 08:28 → PACU V 14:36 → MED/SURG 15:58
PROVIDERS: ADMIT Otolaryngology Otolaryngology/Facial Plastic Surgery; ATTEND Otolaryngology Otolaryngology/Facial Plastic Surgery
DX: E04.1 Nontoxic single thyroid nodule (principal)
CPT/HCPCS: 36415; 60212; 81025; 82040; 82310; 88172; 88173; 88307; 88331; G0378 ×2; J0131; J1100; J2001; J2175 ×2; J2250; J2370; J2405; J2550; J2704; J3490; J7121; 88305